=== PATIENT | male | born 2000 | race Caucasian/White ===

== ENCOUNTER 2021-03-07 18:49 | Emergency (ER) | payer BC ==
[2021-03-07 18:59] VITALS: BP 118/67; PULSE 108; TEMP 102.9; BMI 27.0
[2021-03-07] MEDS ORDERED: PENICILLIN G BENZATHINE 1,200,000 UNIT/2 ML PFS IM ONE ×2 (20:16→20:19)
== END 2021-03-07 20:29 | disposition home or self-care (01) ==
LOC: FER 18:49
DX: J02.0 Streptococcal pharyngitis (principal)
CPT/HCPCS: 99284-25